=== PATIENT | male | born 1965 | race Caucasian/White ===

== ENCOUNTER 2023-08-11 13:07 | Emergency (ER) | payer OTHER ==
[~2023-08-11] VITALS: Ht 190.5 cm; Wt 106.6 kg
[2023-08-11 13:30] VITALS: BP 160/94
[2023-08-11] MEDS ORDERED: XARELTO1 EAC1 PO (15:35)
== END 2023-08-11 15:46 | disposition home or self-care (01) ==
LOC: ER 13:07
DX: I82.432 Acute embolism and thrombosis of left popliteal vein (principal); I82.412 Acute embolism and thrombosis of left femoral vein; E11.9 Type 2 diabetes mellitus without complications; Z86.14 Personal history of Methicillin resistant Staphylococcus aureus infection
CPT/HCPCS: 93971; 99283-25; A9270

== ENCOUNTER → 2024-12-04 | Outpatient (CLI) | payer OTHER ==
[~2024-12-04] MED LIST: XARELTO1 EAC1 PO
[2024-12-04 19:57] LABS: BASOPHILS ABSOLUTE AUTO 0.06 K/mm3 (0.00-0.23); BASOPHILS PERCENT AUTO 1 % (0-2); EOSINOPHILS ABSOLUTE AUTO 0.11 K/mm3 (0.00-0.68); EOSINOPHILS PERCENT AUTO 2 % (0-6); Hematocrit 43.7 % (37.0-53.0); Hemoglobin 14.7 g/dL (13.5-17.5); IMMATURE GRAN ABSOLUTE AUTO 0.09 K/mm3 (0.00-0.10); IMMATURE GRAN PERCENT AUTO 2 % (0-1); LYMPHOCYTES ABSOLUTE AUTO 0.82 K/mm3 (0.84-5.20); LYMPHOCYTES PERCENT AUTO 17 % (21-46); MONOCYTES ABSOLUTE AUTO 0.47 K/mm3 (0.16-1.47); MONOCYTES PERCENT AUTO 10 % (4-13); Mean Corpuscular HGB 30.9 pg (26.0-34.0); Mean Corpuscular HGB Conc 33.6 g/dL (31.5-36.5); Mean Corpuscular Volume 92 fL (80-100); Mean Platelet Volume 11.8 fL (9.1-12.4); NEUTROPHILS ABSOLUTE AUTO 3.29 K/mm3 (1.96-9.15); NEUTROPHILS PERCENT AUTO 68 % (41-73); Platelet Count 174 K/mm3 (150-400); RDW Coefficient Variation 13.9 % (11.7-14.2); RDW Standard Deviation 47.4 fL (35.1-46.3); Red Blood Cell Count 4.75 M/mm3 (4.30-5.90); White Blood Cell Count 4.84 K/mm3 (4.00-11.30)
[2024-12-04 19:58] LABS: International Normalized Ratio 0.99; Prothrombin Time Results 10.6 Sec (9.7-11.5)
== END ==
LOC: LAB 18:45 → LAB SHORT 18:45
PROVIDERS: Nurse Practitioner Family
DX: Z12.5 Encounter for screening for malignant neoplasm of prostate (principal); E66.09 Other obesity due to excess calories; I10 Essential (primary) hypertension; Z86.718 Personal history of other venous thrombosis and embolism
CPT/HCPCS: 83036; 85025; 85610; G0103

== ENCOUNTER 2025-03-29 06:52 | Day surgery (SDC) | payer OTHER ==
[2025-03-29] VITALS (12 sets, daily range): BP systolic 113–172; BP diastolic 63–92
[~2025-03-29] VITALS: Ht 190.5 cm; Wt 105.7 kg
[~2025-03-29 06:52] MED LIST changes: +CeFAZolin Sodium 2,000 MG VIAL ONE; +CeFAZolin Sodium 2,000 MG in NS 100 ML IV SCH
[2025-03-29] MEDS ORDERED: Aspir 8181 MG PO (07:13)
[2025-03-29] MEDS ORDERED: Bupivacaine 0.5% HCl 5 MG/ML 30MLVIAL ONE ×2 (07:31→11:00)
[2025-03-29] MEDS ORDERED: Dexamethasone Sod Phos 10 MG/ML 1ML VIAL ONE (07:37)
[2025-03-29] MEDS ORDERED: FentaNYL Citrate 50 MCG/ML 2 ML Injection ONE (07:37)
[2025-03-29] MEDS ORDERED: Ondansetron HCl 2 MG / ML 2ML Vial ONE (07:37)
[2025-03-29] MEDS ORDERED: Rocuronium Bromide 10 MG/ML 5ML Injection IV ONE ×3 (07:37→10:49)
[2025-03-29] MEDS ORDERED: Ketorolac Tromethamine 30mg Vial ONE (07:38)
[2025-03-29] MEDS ORDERED: FentaNYL Citrate 50 MCG/ML 2 ML Injection IV PRN ×3 (07:45→07:50)
--- NOTE | 2025-03-29 07:48 | NUR ---
Ambulatory in Day Surgery History, Chart, Medications and Allergies reviewed before start of procedure. Pre-Op teaching done. Pt verbalizes understanding. Patient States Post-Procedure ride home has been arranged.
[2025-03-29] MEDS ORDERED: Labetalol HCL 5 MG/ML 4ML Injection (Single Dose) IV PRN (07:50)
[2025-03-29] MEDS ORDERED: Ondansetron HCl 2 MG / ML 2ML Vial IV PRN (07:50)
[2025-03-29] MEDS ORDERED: HYDROmorphone HCl/Pf 1MG SYR IV PRN (07:50)
[2025-03-29] MEDS ORDERED: Metoclopramide HCl 5MG / ML 2ML Vial IV PRN (07:50)
[2025-03-29] MEDS ORDERED: Artificial Tear Opth Oint 3.5 GM ONE (08:21)
[2025-03-29] MEDS ORDERED: HYDROmorphone HCl/Pf 1MG SYR ONE (11:02)
[2025-03-29] MEDS ORDERED: Sugammadex Sodium 200 MG/2ML SDV (100 MG/ML) ONE (11:08)
[2025-03-29] MEDS ORDERED: OxyCODONE 5 mg/Acetamin 325 mg TABLET PO PRN (12:00)
--- NOTE | 2025-03-29 12:53 | NUR ---
Discharge instructions reviewed with patient. Patient verbalizes understanding. Copy given to patient to take home. Patient States Post-Procedure ride home has been arranged WITH EX . Discharged via wheelchair to private car for ride home.
== END 2025-03-29 12:54 | disposition home or self-care (01) ==
LOC: ORSCMMR 06:52 → ORD 08:00 → ORSCMMR 08:00
PROVIDERS: Surgery
PROC: 8E0W4CZ Robotic Assisted Procedure of Trunk Region, Percutaneous Endoscopic Approach (ICD-10-PCS; principal; 2025-03-29 08:00)
PROC: 3E0T3BZ Introduction of Anesthetic Agent into Peripheral Nerves and Plexi, Percutaneous Approach (ICD-10-PCS; principal; 2025-03-29 08:00)
PROC: 0WUF4JZ Supplement Abdominal Wall with Synthetic Substitute, Percutaneous Endoscopic Approach (ICD-10-PCS; principal; 2025-03-29 08:00)
PROC: 0YU54JZ Supplement Right Inguinal Region with Synthetic Substitute, Percutaneous Endoscopic Approach (ICD-10-PCS; principal; 2025-03-29 08:00)
DX: K40.30 Unilateral inguinal hernia, with obstruction, without gangrene, not specified as recurrent (principal); K42.0 Umbilical hernia with obstruction, without gangrene; K45.0 Other specified abdominal hernia with obstruction, without gangrene; K66.0 Peritoneal adhesions (postprocedural) (postinfection); D17.6 Benign lipomatous neoplasm of spermatic cord; I10 Essential (primary) hypertension; E11.9 Type 2 diabetes mellitus without complications; F17.210 Nicotine dependence, cigarettes, uncomplicated; Z86.718 Personal history of other venous thrombosis and embolism; Z79.82 Long term (current) use of aspirin
CPT/HCPCS: A9270; C1781; J0690; J1100; J1171; J1885; J2405; J2704; J3010; J7120